=== PATIENT | female | born 1985 | race Caucasian/White ===

== ENCOUNTER 2018-06-06 21:30 | Emergency (ER) | payer OTHER ==
[2018-06-07] MEDS: DIPHENHYDRAMINE 50 MG INJ IV (03:06)
[2018-06-07] MEDS: SOD CHLORIDE 0.9% 500 ML IV (03:06)
[2018-06-07] MEDS: METOCLOPRAMIDE 10 MG INJ IV (03:07)
[2018-06-07] MEDS: KETOROLAC 30 MG INJ IV (03:07)
[2018-06-07 03:31] LABS: ADD UMIC YES; UR ASCORBIC ACID NEGATIVE (NEGATIVE); UR BILIRUBIN (Dip) NEGATIVE (NEGATIVE); UR BLOOD (Dip) NEGATIVE (NEGATIVE); UR CLARITY SLIGHTLY CLOUDY (CLEAR); UR COLOR YELLOW (YELLOW); UR GLUCOSE (Dip) NEGATIVE (NEGATIVE); UR KETONES (Dip) NEGATIVE (NEGATIVE); UR LEUKOCYTE ESTERASE (Dip) 3+ Leu/ul (NEGATIVE); UR NITRITE (Dip) NEGATIVE (NEGATIVE); UR RBC 2 /HPF (0-5); UR SQUAMOUS EPITHELIAL CELL FEW /HPF (FEW); UR TOTAL PROTEIN (Dip) NEGATIVE (NEGATIVE); UR UROBILINOGEN (Dip) NEGATIVE (NEGATIVE); UR WBC 51 /HPF (0-5)
[2018-06-07] MEDS: LORAZEPAM 1 MG TAB PO (03:35)
== END 2018-06-07 04:30 | disposition home or self-care (01) ==
LOC: FTE 21:30
DX: N39.0 Urinary tract infection, site not specified (principal)
CPT/HCPCS: 81001; 81025; 96374; 96375; 99284-25